=== PATIENT | male | born 1950 | race Caucasian/White ===

== ENCOUNTER → 2016-07-20 | Outpatient (CLI) | payer BC ==
[~2016-07-20] VITALS: Ht 180.3 cm; Wt 95.3 kg
[~2016-07-20] MED LIST: ASPCH81X PO; CHOL2000 PO; CHOL20009 PO; COEN100C7 PO; CRS/10 PO; LEVO150T9 PO; MULT-506 PO; OMEG10007 PO; OXYB10TA PO; SYN125 PO; TRAM-10 PO; VITATAB19 PO
[2016-07-20 14:45] VITALS: BP 103/67; PULSE 57; Ht 180.3 cm; Wt 95.3 kg
== END | disposition home or self-care (01) ==
LOC: C.NEUR 14:32
PROVIDERS: ATTEND Physician Assistant
DX: G47.30 Sleep apnea, unspecified (principal)

== ENCOUNTER → 2016-07-31 | Day surgery (SDC) | payer BC ==
[2016-07-24 07:51] VITALS: Ht 179.1 cm; Wt 88.6 kg
[~2016-07-31] VITALS: Ht 179.1 cm; Wt 88.6 kg
[~2016-07-31] MED LIST changes: +BUPIVACAINE 0.25% 2.5MG/ML PF 10 ML VIAL INFIL ONE; -CHOL20009 PO; +IOPAMIDOL INJ 61% 15 ML VIAL ONE; +LIDOCAINE HCL 1% MPF 5 ML VIAL ONE; -SYN125 PO
--- NOTE | 2016-07-31 14:39 | History & Physical Bridge - SC ---
H&P Re-Evaluation Bridge Note: I have examined the patient, reviewed the History & Physical and in the interval since the performance of the History & Physical I have noted the following changes of clinical significance: No changes noted
--- NOTE | 2016-07-31 15:07 | Discharge Instructions ---
Discharge Instructions Date of Service July 31, 2016. Visit Reason for Visit: Lumbar Disc Displacement Discharge Discharge Diagnosis / Problem: right leg pain Discharge Goals Goal(s): Decrease discomfort, Improve function Medications Stopped Medications Name(s): ASA 81 mg Activity Recommendations Activity Limitations: resume your previous activity Anesthesia . Post Anesthesia Instructions: If you have had General Anesthesia or IV Sedation: * Do not drive today. * Resume driving when surgeon permits. * Do not make important decisions or sign legal documents today. * Call surgeon for: 1. Temperature elevations greater than 101 degrees F. 2. Uncontrollable pain. 3. Excessive bleeding. 4. Persistent nausea and vomiting. 5. Medication intolerance (nausea, vomiting or rash). * For nausea and vomiting use only clear liquids such as: tea, soda, bouillon until nausea subsides, then gradually increase diet as tolerated. * If you have any concerns or questions, call your surgeon's office. If physician is unavailable and it is an emergency, call 911 or go to the nearest emergency room. . Diet Recommendations Recommended Home Diet: resume previous diet Procedures Procedures Performed: Right L3-4 Transforaminal Epidural Steroid Injection Pending Studies Studies pending at discharge: no Medical Emergencies . Who to Call and When: Medical Emergencies: If at any time you feel your situation is an emergency, please call 911 immediately. . Non-Emergent Contact Non-Emergency issues call your: Specialist . . "Provider Documentation" section prepared by Chase Estrella. .
[2016-07-31 15:10] VITALS: TEMP 36.6
[2016-07-31 15:14] VITALS: BP 125/76; PULSE 43; O2SAT 96
--- NOTE | 2016-07-31 16:12 | OPERATIVE REPORT ---
DATE OF OPERATION: 07/31/2016 PREOPERATIVE DIAGNOSIS: Right L3-L4 disk disease with a history of L4-L5-S1 fusion with L3 radiculopathy. POSTOPERATIVE DIAGNOSIS: Same. PROCEDURE: Right L3-L4 transforaminal epidural steroid injection under fluoroscopic guidance. INDICATIONS: The patient is a 66-year-old white male who was last injected via a transforaminal approach in January. He tends to get a number of months of relief following the injections. His pain has returned and is functionally limiting to him. He presents today for an injection to provide him with relief. PHYSICAL EXAMINATION: Pleasant male seated comfortably. He has some sciatic notch sensitivity on the right, limitations with both flexion and extension. Negative seated straight leg raises. CONSENT: Verbal and written consent was reviewed with the patient. Risks include but are not limited to abscess, allergic reaction, dural puncture and wishes to proceed. PROCEDURE: The patient was taken back to the special procedures room of the [facility] where he was maintained in a prone position. Backside was cleansed with Betadine x3 and a dry sterile dressing was applied. Fluoroscope was used to identify the L3-L4 space and in an oblique projection target was set just inferior to the pedicle at L3. He then underwent placement of a 25 gauge 3.5 inch spinal needle with his target. It was then advanced under an AP projection to the point where he began feeling some tingling sensation down the leg. Isovue 300 contrast 0.5 mL was injected in, which demonstrated outlining of the nerve root. He then underwent injection after negative aspiration of 40 mg of Depo-Medrol and 1.5 mL of bupivacaine 0.25%. Injection was well tolerated and reproduced a familiar transient sensation into the painful thigh area. DISPOSITION: 1. The patient is taken out into the discharge recovery area where he will be discharged home once discharge criteria have been met. 2. Follow up in the [facility] office in 2-4 weeks. I attest to the content of the Intraoperative Record and any orders documented therein. Any exceptio ns are noted below.
== END | disposition home or self-care (01) ==
LOC: X.SURG 13:18
PROVIDERS: ATTEND Physical Medicine & Rehabilitation
DX: M51.16 Intervertebral disc disorders with radiculopathy, lumbar region (principal)

== ENCOUNTER → 2016-12-30 | Outpatient (CLI) | payer BC ==
[~2016-12-30] MED LIST changes: -BUPIVACAINE 0.25% 2.5MG/ML PF 10 ML VIAL INFIL ONE; -IOPAMIDOL INJ 61% 15 ML VIAL ONE; -LIDOCAINE HCL 1% MPF 5 ML VIAL ONE
--- NOTE | 2016-12-31 06:24 | PAP/PSG TECHNICIAN REPORT ---
[facility] Service Officer Polysomnogram Report Study name: None Report date: 12/31/2016 Study date: 12/30/2016 Referring Physician: Magalys Murguia PA-C Name: ROSE COON Interpreting Physician: Jed Juarez M.D. Date of : 1950 Service Officer: Geoffrey Alvarez RPSGT. Sex: Male Age: 66 StudyType: PSG PAP Weight: 209 lbs 14.5 inches Height: 66 years, Height 5' 10" Neck Circum: BMI: 29.99 Medications: ASPIRIN 81 MG, CO-Q 10, CYCLOBENZAPRINE HCL 10 MG, FLONASE 50 MCG, LEVOTHYROXINE SODIUM 125 MCG, METRONIDAZOLE 250 MG, OXYBUTYNIN CHLORIDE ER 10 MG, ROSUVASTATIN CACLIUM 10 MG, TRAMADOL HCL 50 MG, VITAMIN D3 Patient History PATIENT HAD A HOME STUDY IN AUGUST OF 2015 WHICH SHOWED AN AHI OF 19.9/HR. HE LATER HAD A TITRATION STUDY DONE IN 2015, WHICH SHOWED AN AHI OF 25 ON BIPAP. HE IS HERE TODAY FOR AN ASV TITRATION. ES = 6 RM 1 Parameters Monitored NPSG: E1-M2, E2-M1, Fp1-M2, Fp2-M1, F3-M2, F4-M2, F4-M1, C3-M2, C4-M2, C4-M1, O1-M2, O2-M2, O2-M1, T3-M2, T4-M1, P3-M2, P4-M1, CHIN1, CHIN2, HR, EKG, Legs, PFLOW, SNOR, FLOW, CFLOW, Tidal Volume, THOR, ABDO, SpO2, PLTH, CPRESS, ETCO2 Wave, ETCO2, pH Sleep Architecture Sleep Stages Time at Lights Off 10:18:01 PM STAGES Time (min.) TST (%) Time at Lights On 6:01:01 AM Wake 105.0 -- Total Recording Time (TRT) 463.50 min. N1 25.5 7 Total Sleep Period (TSP) 452.5 min. N2 247.0 69 Total Sleep Time (TST) 358.0min. N3 9.5 3 Awake Time 105.5 min. REM 76.0 21 Wake after Sleep Onset 94.5 min. Sleep Efficiency (SE) 77 % Sleep Onset Latency (ELIE) 10.5 min. Number of Stage 1 Shifts None Awakenings 22 Stage Changes 80 Number of REM periods 8 REM 76.0 21 REM Latency 92.5 min. NREM 282.0 79 Body Position Analysis Supine Right Left Side Prone Vertical Total Sleep Time (min.) 298.4 0.0 141.4 141.39 0.0 0.0 Total Sleep Time (%) 61% 0% 39% 39 0% N/A% Total Sleep Time REM (min.) 22.5 0.0 53.5 None 0.0 0.0 Total Sleep Time NREM (min.) 194.1 0.0 87.9 None 0.0 0.0 Intermittent Wake (min.) 81.8 0.0 23.2 None 0.0 0.0 Total Sleep Period (%) 64% None None None None None Arousals Myoclonus (PLM) * Events Count Index Events Count Index Spontaneous 53 9 Events Awake (PLMW) 89 50.9 Respiratory 11 2.0 Events Asleep w/ Arousal (PLMA) 7 1.2 PLM 7 1 Events Asleep w/o Arousal (PLMS) 283 47.4 Snoring 5 1 Total Asleep 290 48.6 Total 76 13 Total 379 49 Respiratory Analysis * CA OA MA CH H RERA Total Count 6 59 19 0 12 0 96 Index 1.0 9.9 3.2 0 2.0 0 16.1 Mean Duration 21.8 28.8 39.3 0.00 38.9 0.0 31.7 Longest Duration 29.3 51.2 57.5 0.00 57.5 0.0 57.5 Respiratory Event Summary Total Supine ~Supine Right Left Prone REM NREM Apneas Count 84 84 0 N/A 0 N/A 0 84 Index 14.1 23 0 N/A 0.0 N/A 0 18 Hypopneas (4% Desat) Count 12 12 0 N/A 0 N/A 0 12 Index 2.0 3.3 0 N/A 0.0 N/A 0.0 2.6 Apneas & All Hypopneas Count 96 96 0 N/A 0 N/A 0 96 Index 16.1 27 0 N/A 0 N/A 0.0 20.4 Respiratory Events (Licensed Occupational Therapist+All Hyp+RERA) Count 96 96 0 N/A 0 N/A 0 96 Index 16.1 27 0 N/A 0.0 N/A 0.0 20.4 Respiratory Related Arousal Count 11 96 0 N/A 0 N/A 0 12 Index 2.0 3 0 N/A 0 N/A 0 3 Snoring Analysis Supine Right Left Prone REM NREM Total Snore duration 3.1 min Snores count 82 N/A 31 N/A 9 104 113 Snore mean duration 1.6 Sec Snores index 23 N/A 13 N/A 7.1 22.1 18.9 TST with snoring (%) 0.9% Desaturation Event Summary: Minimum %SpO2 Event Count Mean/Min/Max Duration(sec.) Desaturation Index % Time In Bed > 90 57 46.9 / 13.5 / 97.8 7.5 99.8 86 - 90 0 N/A 0.0 0.2 81 - 85 0 N/A 0.0 0.0 76 - 80 0 N/A 0.0 0.0 71 - 75 0 N/A 0.0 0.0 66 - 70 0 N/A 0.0 0.0 61 - 65 0 N/A 0.0 0.0 56 - 60 0 N/A 0.0 0.0 51 - 55 0 N/A 0.0 0.0 < 50 0 N/A 0.0 0.0 Total REM NREM Awake <50% 0.0 min. 0.0 min. 0.0 min. 0.0 min. 51 - 60% 0.0 min. 0.0 min. 0.0 min. 0.0 min. 61 - 70% 0.0 min. 0.0 min. 0.0 min. 0.0 min. 71 - 80% 0.0 min. 0.0 min. 0.0 min. 0.0 min. 81 - 90% 0.8 min. 0.0 min. 0.2 min. 0.5 min. 91 - 100% 456.1 min. 76.0 min. 281.8 min. 98.4 min. Average 96 96 96 96 Minimum SpO2 90 94 90 90 Desaturation Event Index 7.4 0.0 11.5 1.7 # Desat. Events below 89% N/A N/A N/A N/A Time(%) with Saturation below 89% 0.0 0.0 0.0 0.0 Time(min.) with Saturation below 89% 0.0 0.0 0.0 0.0 Time (mins) REM (mins) NREM (mins) % of TST SpO2 Below 90% 1 N/A N1 0.0 SpO2 Below 88% 0 0 0 0 Heart Rate Analysis Min (bpm) Max (bpm) Average (bpm) Awake 38 85 51 NREM 41 73 48 REM 42 72 50 Overall 41 73 48 Supplemental O2 Values Minimum O2 level: None Value Start Time End Time Service Officer Comments Mr. Coon slept in the supine and left positions. PVC's noted. Leg movements noted. No bruxism noted. ASV was initiated at EPAP MIN 4, EPAP MAX 15, PS MIN 4, PS MAX 20, MAX PRESSURE 25, RATE AUTO, BIFELX 3 (CPAP 1) and up-titrated to an level of EPAP MIN 8, EPAP MAX 15, PS MIN 4, PS MAX 17, MAX PRESSURE 25, RATE AUTO BIFLEX 3 (CPAP 5) which nearly eliminated all respiratory events and snoring. A Resmed Air touch F20 full face size medium mask was used during titration Mr. Coon awoke to use the restroom 1 time during the night. Mr. Coon stated I slept as well as I do when I am in my own bed. The final report will be interpreted and signed by a sleep physician. The completed physician report will then be placed in the patient medical record. Therapy Event: Therapy (cm H20) 1 2 3 4 5 Total Time at Pressure (min.) 60.5 98.0 21.0 54.0 229.5 TST at Pressure (min.) 23.5 71.5 21.0 53.5 188.5 # Periods 1 1 1 1 1 Sleep Onset (min.) 10.5 0.0 0.0 0.0 0.0 REM Onset (min.) N/A 42.5 N/A N/A 64.0 Sleep Efficiency % 38 73 100 99 82 Wakefulness (%) 61.2 27.0 0.0 0.9 17.9 Wakefulness (min.) 37.0 26.5 0.0 0.5 41.0 NREM 1 (%) 2.5 7.1 0.0 0.9 7.2 NREM 1 (min.) 1.5 7.0 0.0 0.5 16.5 NREM 2 (%) 36.3 45.9 100.0 98.1 46.2 NREM 2 (min.) 22.0 45.0 21.0 53.0 106.0 NREM 3 (%) 0.0 3.1 0.0 0.0 2.8 NREM 3 (min.) 0.0 3.0 0.0 0.0 6.5 REM (%) 0.0 16.8 0.0 0.0 25.9 REM (min.) 0.0 16.5 0.0 0.0 59.5 # Arousals 11 15 2 11 37 Arousal Index 28.1 12.6 5.7 12.3 11.8 # Snore 19 38 24 13 19 Snore Index 48.6 31.9 68.6 14.6 6.0 AHI 38.4 16.8 45.7 30.3 5.7 AHI Supine 38.4 43.4 45.7 30.3 11.9 AHI Non-Supine N/A 0.0 N/A N/A 0.0 NREM AHI 38.4 21.8 45.7 30.3 8.4 REM AHI N/A 0.0 N/A N/A 0.0 RDI 38.4 16.8 45.7 30.3 5.7 # Obstructive 7 10 10 22 10 # Central Ap 1 2 0 1 2 # Mixed 4 7 6 0 2 # Hypopneas 3 1 0 4 4 RERAS 0 0 0 0 0 Total Respiratory Events 15 20 16 27 18 Time Below SpO2 89.00% (min.) 0.0 0.0 0.0 0.0 0.0 Mean NREM SpO2 (%) 95 96 97 96 96 Mean REM SpO2 (%) N/A 96 N/A N/A 97 Mean Sleep SpO2 (%) 95 96 97 96 96 Min NREM SpO2 (%) 90 93 93 90 91 Min REM SpO2 (%) N/A 94 N/A N/A 95 Position Supine (min.) 23.5 27.6 21.0 53.5 91.0 Position Non-supine (min.) 0.0 43.9 0.0 0.0 97.5 LM Index Sleep 5.1 11.7 142.9 127.9 35.0 LM Index NREM 5.1 13.1 142.9 127.9 39.1 LM Index REM N/A 7.3 N/A N/A 26.2 Mean Heart Rate (bpm) 49 49 48 49 47 Min Heart Rate (bpm) 44 42 42 44 41
--- NOTE | 2016-12-31 13:33 | POLYSOMNOGRAPH REPORT ---
CLINICAL DATA: A 66-year-old male with BMI of 30 referred by Magalys Murguia and myself for an ASV titration study. He had a home sleep study August 2015, which showed moderate JAZLYN with an AHI of approximately 20. He had a titration study which showed complex sleep apnea with use of CPAP and BiPAP. He has been utilizing positive airway pressure therapy without success and is here for an ASV titration. SLEEP ARCHITECTURE: Total sleep period was 452.5 minutes. Total sleep time was 358 minutes divided between 282 minutes of non-REM sleep and 76 minutes of REM sleep. Sleep onset latency was 10.5 minutes. REM latency was 92.5 minutes. Sleep efficiency was 77%. Wake after sleep onset was 94.5 minutes. Sleep consisted of stage N1 7%, stage N2 69%, stage N3 3%, and REM 21%. AROUSAL DATA: Seventy-six arousals were recorded for an index of 13 per hour. Fifty-three were spontaneous. PLM DATA: Significantly elevated limb movements during sleep were noted. There were 290 limb movements during sleep noted for an index of 48.6 per hour with an arousal index of 1.2 per hour. RESPIRATORY DATA: The AHI was 16.1. There were 6 central, 59 obstructive, 19 mixed apneic episodes. The longest apneic episode was 57.5 seconds. There were 12 hypopneic episodes with a mean duration of 38.9 seconds. OXIMETRY DATA: No hypoxemia was seen. Oxygen yogesh was 90% during non-REM sleep. The mean saturation is 96%. EKG: Heart rates ranged from 41-73 beats per minute. PVCs were noted. QUILT MAKER'S COMMENTS: The patient slept supine and in the left position. He used a ResMed AirTouch F20 full facemask size medium. He was started on ASV and was titrated up to his final pressure setting of EPAP minimum 8, EPAP maximum 15, pressure support minimum 4, pressure support maximum 17, maximum pressure 25, rate auto, Bi-Flex 3. At this pressure setting, the patient slept for 188.5 minutes with an AHI of 5.7. IMPRESSION: Complex sleep apnea corrected with ASV at the above noted settings with a ResMed AirTouch F20 full face mask, medium size. RECOMMENDATIONS: The patient should be converted to ASV and seen in followup to document efficacy and compliance. [facility]
== END | disposition home or self-care (01) ==
LOC: C.NEUR 21:00
PROVIDERS: ATTEND Physician Assistant Medical
DX: G47.39 Other sleep apnea (principal)

== ENCOUNTER → 2017-01-28 | Day surgery (SDC) | payer BC ==
[2017-01-04 14:10] VITALS: Ht 179.1 cm; Wt 90.9 kg
[~2017-01-28] VITALS: Ht 179.1 cm; Wt 90.9 kg
[~2017-01-28] MED LIST changes: +BUPIVACAINE 0.25% 2.5MG/ML PF 10 ML VIAL ONE; +IOPAMIDOL INJ 61% 15 ML VIAL ONE; +LIDOCAINE HCL 1% MPF 5 ML VIAL ONE; +SODIUM CHLORIDE 0.9% INJ 10 ML VIAL ONE
--- NOTE | 2017-01-28 14:45 | Discharge Instructions ---
Discharge Instructions Date of Service Jan 28, 2017. Visit Reason for Visit: Lumbar Radiculopathy Discharge Discharge Diagnosis / Problem: right leg pain Discharge Goals Goal(s): Decrease discomfort, Improve function Medications Stopped Medications Name(s): ASPIRIN STOPPED 4 DAYS AGO Activity Recommendations Activity Limitations: resume your previous activity Anesthesia . Post Anesthesia Instructions: If you have had General Anesthesia or IV Sedation: * Do not drive today. * Resume driving when surgeon permits. * Do not make important decisions or sign legal documents today. * Call surgeon for: 1. Temperature elevations greater than 101 degrees F. 2. Uncontrollable pain. 3. Excessive bleeding. 4. Persistent nausea and vomiting. 5. Medication intolerance (nausea, vomiting or rash). * For nausea and vomiting use only clear liquids such as: tea, soda, bouillon until nausea subsides, then gradually increase diet as tolerated. * If you have any concerns or questions, call your surgeon's office. If physician is unavailable and it is an emergency, call 911 or go to the nearest emergency room. . Diet Recommendations Recommended Home Diet: resume previous diet Procedures Procedures Performed: TRANSFORAMINAL EPIDURAL STEROID INJECTION Pending Studies Studies pending at discharge: no Medical Emergencies . Who to Call and When: Medical Emergencies: If at any time you feel your situation is an emergency, please call 911 immediately. . Non-Emergent Contact Non-Emergency issues call your: Specialist . . "Provider Documentation" section prepared by Chase Estrella. .
[2017-01-28 14:52] VITALS: BP 94/66; PULSE 54; O2SAT 99
--- NOTE | 2017-01-28 14:57 | OPERATIVE REPORT ---
DATE OF OPERATION: 01/28/2017 PREOPERATIVE DIAGNOSIS: Failed back syndrome, history of L4-L5-S1 fusion with a right L4 radiculopathy. POSTOPERATIVE DIAGNOSIS: Same. PROCEDURE: Right L4-L5 transforaminal epidural steroid injection at L4-L5 under fluoroscopic guidance. SURGEON: Dr. Estrella. INDICATIONS: The patient is a 66-year-old male that underwent a right-sided transforaminal injection at L4-L5 a year ago and has done fairly well with that injection. Recently he has began having increasing right leg pain so he presents today for an epidural injection to provide him with relief. PHYSICAL EXAMINATION: Pleasant male seated comfortably in no apparent distress. He is nontender to palpation of his lumbar spine. He is exquisitely tender to his left trochanteric bursa area. No focal weakness. Negative seated straight leg raises. CONSENT: Verbal and written consent was obtained from the patient. Risks and benefits were reviewed. Risks include but are not limited to abscess, allergic reaction, dural puncture, intravascular injection. He wishes to proceed. PROCEDURE: The patient was taken back to the special procedures room of [facility]. He was maintained in a prone position. Backside was cleansed with Betadine x3 and a dry sterile dressing was applied. Fluoroscope was used to identify the L4-L5 interlaminar space which was hard to see with the overlying hardware. It was then moved to an oblique view and the inferior pedicle, this area was targeted. Overlying skin was anesthetized with 5 mL of lidocaine 1% with a 25 gauge 1.5-inch needle. A 22 gauge 5 inch spinal needle was then directed inferior to the pedicle. It was advanced under AP guidance. Isovue 300 injection could not be seen. Lateral view showed it to be not into the space. It was then redirected more ventrally advanced and Isovue 300 contrast then showed nerve outline. He then underwent injection after negative aspiration of 40 mg of Depo-Medrol and 1 mL of preservative-free 0.25% bupivacaine with significant relief of pain in the leg and thigh area. DISPOSITION: He was taken out into the discharge recovery area where he will be discharged home once discharge criteria have been met. He will follow up in 4 weeks at the [facility] [place]. I attest to the content of the Intraoperative Record and any orders documented therein. Any exception s are noted below.
== END | disposition home or self-care (01) ==
LOC: X.SURG 13:13
PROVIDERS: ATTEND Physical Medicine & Rehabilitation
DX: M96.1 Postlaminectomy syndrome, not elsewhere classified (principal); M54.17 Radiculopathy, lumbosacral region; Z79.82 Long term (current) use of aspirin; Z79.899 Other long term (current) drug therapy

== ENCOUNTER → 2017-07-19 | Day surgery (SDC) | payer BC ==
[2017-07-08 11:24] VITALS: Ht 179.1 cm; Wt 90.9 kg
[~2017-07-19] VITALS: Ht 179.1 cm; Wt 90.9 kg
--- NOTE | 2017-07-19 15:07 | [facility] Post Operative Brief Note ---
Immediate Operative Summary Operative Date Jul 19, 2017. Pre-Operative Diagnosis LUMBAR RADICULOPATHY Post-Operative Diagnosis LUMBAR RADICULOPATHY Procedure(s) Performed LUMBAR EPIDURAL STEROID INJECTION VIA TRANSFORAMINAL APPROACH Surgeon DR. Elsy CHARLES [employer] Machine Operator Surgeon(s) None Estimated Blood Loss NONE Findings Consistent with Post-Op Diagnosis Specimens NA Drains None Anesthesia Type Local Complication(s) none Disposition Disposition:
--- NOTE | 2017-07-19 15:08 | Discharge Instructions ---
Discharge Instructions Date of Service Jul 19, 2017. Visit Reason for Visit: Lumbar Radiculopathy Discharge Discharge Diagnosis / Problem: Right leg pain Discharge Goals Goal(s): Decrease discomfort, Improve function Medications Stopped Medications Name(s): ASA stopped 07/14/17. Fish oil stopped 07/15/17. Activity Recommendations Activity Limitations: resume your previous activity Anesthesia . Post Anesthesia Instructions: If you have had General Anesthesia or IV Sedation: * Do not drive today. * Resume driving when surgeon permits. * Do not make important decisions or sign legal documents today. * Call surgeon for: 1. Temperature elevations greater than 101 degrees F. 2. Uncontrollable pain. 3. Excessive bleeding. 4. Persistent nausea and vomiting. 5. Medication intolerance (nausea, vomiting or rash). * For nausea and vomiting use only clear liquids such as: tea, soda, bouillon until nausea subsides, then gradually increase diet as tolerated. * If you have any concerns or questions, call your surgeon's office. If physician is unavailable and it is an emergency, call 911 or go to the nearest emergency room. . Diet Recommendations Recommended Home Diet: resume previous diet Procedures Procedures Performed: LUMBAR EPIDURAL STEROID INJECTION VIA TRANSFORAMINAL APPROACH Pending Studies Studies pending at discharge: no Medical Emergencies . Who to Call and When: Medical Emergencies: If at any time you feel your situation is an emergency, please call 911 immediately. . Non-Emergent Contact Non-Emergency issues call your: Specialist . . "Provider Documentation" section prepared by Chase Estrella. .
[2017-07-19 15:11] VITALS: TEMP 37
[2017-07-19 15:24] VITALS: BP 115/64; PULSE 55; O2SAT 99
--- NOTE | 2017-07-19 18:18 | OPERATIVE REPORT ---
DATE OF OPERATION: 07/19/2017 PREOPERATIVE DIAGNOSIS: Failed back syndrome, history of lumbar fusion, multilevel, with a right L3 radiculopathy. POSTOPERATIVE DIAGNOSIS: Failed back syndrome, history of lumbar fusion, multilevel, with a right L3 radiculopathy. PROCEDURE: Right paramedian L2-L3 transforaminal epidural steroid injection under fluoroscopic guidance. INDICATIONS: The patient is a 67-year-old male who has received transforaminal injections, typically 2 times a year for the past 3-4 years. He gets longstanding relief for the pain, lasting duration about 4-5 months. PHYSICAL EXAMINATION: Pleasant male seated comfortably. He has some limitations with forward flexion and extension of the back. He has positive straight leg raise in both lower extremities. No sensory dermatomal deficit. CONSENT: Risks and benefits reviewed with the patient. Risks include but are not limited to abscess, allergic reaction, intravascular injection, dural puncture, and he wishes to proceed. DESCRIPTION OF PROCEDURE: The patient was taken back to the special procedures room of [facility]. He was maintained in a prone position. Backside was cleansed with Betadine x3, and a dry sterile dressing was applied. Fluoroscope was used to identify the L3-L4 pedicle area. Overlying skin was anesthetized in oblique view with 5 mL of Lidocaine 1% in 25 gauge 1-1/2-inch needle. A 22 gauge 5 inch spinal needle was directed in the pedicle view to the hardware area. It was noted it could not be advanced because of hardware and was sent a little bit lateral and inferior to that. It was able to be advanced to the transverse process region and then was injected with Isovue 300 contrast which showed spread below the pedicle area into where the root is located. He then underwent injection after negative aspiration of 40 mg of Depo-Medrol and 1.5 mL of bupivacaine 0.25%. Injection was well tolerated. DISPOSITION: 1. The patient is taken out in the discharge recovery area where he will be discharged home once discharge criteria met. 2. Follow up in the [facility] office in 4 weeks time. I attest to the content of the Intraoperative Record and any orders documented therein. Any exception s are noted below.
== END | disposition home or self-care (01) ==
LOC: X.SURG 13:50
PROVIDERS: ATTEND Physical Medicine & Rehabilitation
DX: M54.16 Radiculopathy, lumbar region (principal); I71.4 Abdominal aortic aneurysm, without rupture; I71.2 Thoracic aortic aneurysm, without rupture; I34.0 Nonrheumatic mitral (valve) insufficiency; R73.03 Prediabetes; G47.30 Sleep apnea, unspecified; E78.5 Hyperlipidemia, unspecified; E03.9 Hypothyroidism, unspecified; Z79.82 Long term (current) use of aspirin; Z87.442 Personal history of urinary calculi; Z86.010 Personal history of colon polyps; Z90.49 Acquired absence of other specified parts of digestive tract; Z98.1 Arthrodesis status; Z85.828 Personal history of other malignant neoplasm of skin